=== PATIENT | male | born 1945 | race Caucasian/White ===

== ENCOUNTER 2017-11-22 16:39 | Emergency (ER) | payer OTHER ==
[2017-11-22 16:56] VITALS: BMI 26.5
[2017-11-22] MEDS ORDERED: NS 1000 ML 1,000 ML ONE ×3 (17:08→21:25)
[2017-11-22] MEDS ORDERED: ADENOCARD INJ 6 MG IVP ONE ×2 (17:08→17:15)
[2017-11-22 17:11] LABS: BASOPHILS % (AUTO) 0.3 % (0.2-1.0); EOSINOPHILS % (AUTO) 0.1 % (0.9-2.9); HEMATOCRIT 38.3 % (42.0-54.0); HEMOGLOBIN 13.2 g/dL (13.5-18.0); LYMPHOCYTES # (AUTO) 0.4 X10^3/uL (1.3-2.9); LYMPHOCYTES % (AUTO) 5.2 % (21.0-51.0); MEAN CORPUSCULAR HEMOGLOBIN 32.1 pg (27.0-34.0); MEAN CORPUSCULAR HGB CONC 34.6 g/dL (33.0-35.0); MEAN CORPUSCULAR VOLUME 92.9 fL (80.0-100.0); MEAN PLATELET VOLUME 7.3 fL (7.4-11.0); MONOCYTES # (AUTO) 0 x10^3/uL (0.3-0.8); MONOCYTES % (AUTO) 0.5 % (0.0-13.0); NEUTROPHILS # (AUTO) 7.3 x10^3/uL (2.2-4.8); NEUTROPHILS % (AUTO) 93.9 % (42.0-75.0); PLATELET COUNT 189 X10^3/uL (150.0-450.0); RED BLOOD COUNT 4.13 X10^6/uL (4.7-6.0); RED CELL DISTRIBUTION WIDTH 13.1 % (11.6-16.5); WHITE BLOOD COUNT 7.8 X10^3/uL (3.6-10.0)
[2017-11-22] MEDS ORDERED: CARDIZEM INJ 50 MG VIAL ONE (17:16)
[2017-11-22 17:17] LABS: PLATELET MORPHOLOGY COMMENT NORMAL (NORMAL)
[2017-11-22] MEDS ORDERED: CARDIZEM INJ 50 MG VIAL IVP ONE ×2 (17:22→17:43)
[2017-11-22 17:25] LABS: BAND NEUTROPHILS % 4 % (0-10)
[2017-11-22 17:26] LABS: LACTIC ACID 3.1 mmol/L (0.4-2.0)
[2017-11-22 17:31] LABS: ALANINE AMINOTRANSFERASE 42 Units/L (12-78); ALBUMIN 3.4 g/dL (3.4-5.0); ALKALINE PHOSPHATASE 92 Units/L (46-116); ASPARTATE AMINO TRANSFERASE 25 Units/L (15-37); BLOOD UREA NITROGEN 22 mg/dL (7-18); CALCIUM 8.7 mg/dL (8.5-10.1); CARBON DIOXIDE 27.8 mmol/L (21-32); CHLORIDE 97 mmol/L (98-107); CKMB % 1.5 % (<4); COR NA(FOR HYPERGLY) 135 mmol/L (136-145); CREATINE KINASE 130 Units/L (39-308); MAGNESIUM 1.4 mg/dL (1.7-2.9); SODIUM 134 mmol/L (136-145); TOTAL PROTEIN 7.4 g/dL (6.4-8.2); TROPONIN I < 0.02 ng/mL (0-1.5); eGFR BLACK RACES > 60 (>60); eGFR NON BLACK RACES 58 (>60)
[2017-11-22] MEDS ORDERED: LEVAQUIN PREMIX IV 750 MG 750 MG/150 ML BAG IV ONE ×2 (17:34→17:37)
[2017-11-22 18:05] LABS: BILIRUBIN,URINE NEGATIVE (NEGATIVE); BLOOD/HEMOGLOBIN,URINE 5+ (NEGATIVE); GLUCOSE, URINE NEGATIVE (NEGATIVE); KETONES,URINE NEGATIVE (NEGATIVE); LEUKOCYTE ESTERASE ,URINE 1+ (NEGATIVE); NITRITES,URINE NEGATIVE (NEGATIVE); PROTEIN,URINE 1+ (NEGATIVE); UROBILINOGEN,URINE NORMAL (NORMAL)
[2017-11-22 18:14] LABS: APPEARANCE,URINE SLIGHTLY HAZY (CLEAR); BACTERIA,URINE 1+ /HPF (NEGATIVE); COLOR,URINE DARK YELLOW (YELLOW); RBC,URINE 30-50 /HPF (NONE SEEN); SQUAMOUS EPITHELIAL CELL,UR NEGATIVE /HPF (NEGATIVE)
[2017-11-22 18:15] LABS: YEAST,URINE RARE /HPF (NEGATIVE)
--- NOTE | 2017-11-22 18:40 | DR.URIAD ---
HPI - Time Seen Time seen: 18:37 (seen on arrival to ER room) - PCP Primary Care Physician: IMMANUEL - Complaint Chief Complaint Doctors Comments: 1 day hx of symptoms, had prostate bx yesterday. 'Just got over the flu', per daughter. Feels cold with shaking chills, no measured fevers Chief Complaint:: SHAKES, COLD, CAN'T STAND UP. PT. STATES "I THINK I'VE GOT THE FLU." - Reviewed Nurses Notes Reviewed: Yes - Source History Provided: Patient - Mode of Arrival Mode of Arrival: Ambulatory - Timing Onset of Chief Complaint: 11/22/17 - Context History of Respiratory: Suspected Exposure to Flu PMH - PMH Past Medical History: Yes Past Medical History: Diabetes, Dyslipidemia, Hypertension, Hypothyroidism Past Surgical History: Yes Surgical History: Appendectomy Past Surgical History Comment: prostate bx yesterday - Family History History of Family Medical Conditions: No - Social History Does patient currently use any type of tobacco product: No Have you used tobacco products in the last 12 months: No Type of Tobacco Use: None Does any household member use tobacco: No Alcohol Use: None Do you use any recreational Drugs:: No Lives With: Alone Lives Where: Home - infectious screening In the last 2 months have you had wt loss of >10#?: NO Have you had fever, night sweats or hemotysis?: No Have you traveled outside the country in the last 6 months?: No Isolation: Standard ROS - Review of Systems Constitutional: Chills, Malaise, Fatigue Eyes: No Symptoms Reported ENTM: No Symptoms Reported Respiratoy: No Symptoms Reported Cardiovascular: No Symptoms Reported Gastrointestinal/Abdominal: No Symptoms Reported Genitourinary: Frequency Neurological: Weakness Musculoskeletal: No Symptoms Reported Integumentary: No Symptoms Reported Hematologic/Lymphatic: No Symptoms Reported Endocrine: No Symptoms Reported Psychiatric: No Symptoms Reported All Other Systems: Reviewed and Negative PE - Vital Signs Vitals: Temperature 99.4 F Pulse Rate [Apical] 127 Pulse Rate 148 Respiratory Rate 25 Blood Pressure [Right Arm] 92/50 Blood Pressure 133/80 O2 Sat by Pulse Oximetry 99 - General Limitations: No Limitations General Appearance: Alert, Other (ill appearing but NAD) - Head Head Exam: Normal Inspection, Atraumatic, Normocephalic - Eyes Eye exam: Normal Appearance - ENT ENT Exam: Normal Exam, Normal Oropharynx Throat Exam: Normal Inspection. negative: Tonsillar Erythema - Respiratory Respiratory Exam: Normal Lung Sounds Bilat. negative: Accessory Muscle Use, Respiratory Distress Respiratory Exam: Bilateral Clear to Auscultation - Cardiovascular Cardiovascular Exam: Tachycardia, Other (tachy in 140's on arrival) - Abdominal Exam Abdominal Exam: Normal Bowel Sounds, Soft, Tenderness. negative: Guarding, Rebound, Rigidity, Dimnished Bowel Sounds - Extremeties Extremities Exam: Normal Inspection, Full ROM - Neurologic Neurological Exam: Alert, Oriented X3 - Psychiatric Psychiatric Exam: Normal Affect, Normal Mood - Skin Skin Exam: Warm, Dry, Normal Color ROR - Labs Reviewed Laboratory Results Reviewed?: Yes (lactic 3.1) Result Diagrams: 11/22/17 16:57 11/22/17 16:57 Laboratory: WBC 7.8 X10^3/uL (3.6-10.0) 11/22/17 16:57 RBC 4.13 X10^6/uL (4.7-6.0) L 11/22/17 16:57 Hgb 13.2 g/dL (13.5-18.0) L 11/22/17 16:57 Hct 38.3 % (42.0-54.0) L 11/22/17 16:57 MCV 92.9 fL (80.0-100.0) 11/22/17 16:57 MCH 32.1 pg (27.0-34.0) 11/22/17 16:57 MCHC 34.6 g/dL (33.0-35.0) 11/22/17 16:57 RDW 13.1 % (11.6-16.5) 11/22/17 16:57 Plt Count 189 X10^3/uL (150.0-450.0) 11/22/17 16:57 Plt Count Comment Adequate (ADEQUATE) 11/22/17 16:57 MPV 7.3 fL (7.4-11.0) L 11/22/17 16:57 Neut % 93.9 % (42.0-75.0) H 11/22/17 16:57 Lymph % 5.2 % (21.0-51.0) L 11/22/17 16:57 [place] % 0.5 % (0.0-13.0) 11/22/17 16:57 Eos % 0.1 % (0.9-2.9) L 11/22/17 16:57 Baso % 0.3 % (0.2-1.0) 11/22/17 16:57 Neut # 7.3 x10^3/uL (2.2-4.8) H 11/22/17 16:57 Lymph # 0.4 X10^3/uL (1.3-2.9) L 11/22/17 16:57 [place] # 0 x10^3/uL (0.3-0.8) L 11/22/17 16:57 Eos # 0.0 x10^3/uL (0.0-0.2) 11/22/17 16:57 Baso # 0.0 X10^3/uL (0.0-0.1) 11/22/17 16:57 Absolute Nucleated RBC 0.0 /100WBC 11/22/17 16:57 Total Counted 100 11/22/17 16:57 Neutrophils % (Manual) 88 % (39-76) H 11/22/17 16:57 Band Neutrophils % 4 % (0-10) 11/22/17 16:57 Lymphocytes % (Manual) 6 % (13-43) L 11/22/17 16:57 Monocytes % (Manual) 2 % (4-9) L 11/22/17 16:57 Plt Morphology Comment Normal (NORMAL) 11/22/17 16:57 RBC Morphology Normal (NORMAL) 11/22/17 16:57 Sodium 134 mmol/L (136-145) L 11/22/17 16:57 Corrected Sodium 135 mmol/L (136-145) L 11/22/17 16:57 Potassium 4.0 mmol/L (3.5-5.1) 11/22/17 16:57 Chloride 97 mmol/L (98-107) L 11/22/17 16:57 Carbon Dioxide 27.8 mmol/L (21-32) 11/22/17 16:57 BUN 22 mg/dL (7-18) H 11/22/17 16:57 Creatinine 1.30 mg/dL (0.70-1.30) 11/22/17 16:57 Est GFR (MDRD) Af Amer > 60 (>60) 11/22/17 16:57 Est GFR (MDRD) Non-Af 58 (>60) L 11/22/17 16:57 Glucose 124 mg/dL (65-99) H 11/22/17 16:57 Lactic Acid 3.1 mmol/L (0.4-2.0) H 11/22/17 16:57 Calcium 8.7 mg/dL (8.5-10.1) 11/22/17 16:57 Corrected Calcium TNP 11/22/17 16:57 Magnesium 1.4 mg/dL (1.7-2.9) L 11/22/17 16:57 Total Bilirubin 1.10 mg/dL (0.2-1.0) H 11/22/17 16:57 AST 25 Units/L (15-37) 11/22/17 16:57 ALT 42 Units/L (12-78) 11/22/17 16:57 Alkaline Phosphatase 92 Units/L (46-116) 11/22/17 16:57 Creatine Kinase 130 Units/L (39-308) 11/22/17 16:57 CK-MB (CK-2) 2.0 ng/mL (0-4.0) 11/22/17 16:57 CK/CKMB % Calc 1.5 % (<4) 11/22/17 16:57 Troponin I < 0.02 ng/mL (0-1.5) 11/22/17 16:57 Total Protein 7.4 g/dL (6.4-8.2) 11/22/17 16:57 Albumin 3.4 g/dL (3.4-5.0) 11/22/17 16:57 Globulin 4.0 g/dL (2.5-4.5) 11/22/17 16:57 Albumin/Globulin Ratio 0.9 Ratio (1.1-2.1) L 11/22/17 16:57 Specimen Type Random urine 11/22/17 17:56 Urine Color Dark yellow (YELLOW) 11/22/17 17:56 Urine Appearance Slightly hazy (CLEAR) 11/22/17 17:56 Urine pH 5.0 (5.0 - 8.0) 11/22/17 17:56 Ur Specific [place] 1.010 (1.000-1.030) 11/22/17 17:56 Urine Protein 1+ (NEGATIVE) 11/22/17 17:56 Urine Glucose (UA) Negative (NEGATIVE) 11/22/17 17:56 Urine Ketones Negative (NEGATIVE) 11/22/17 17:56 Urine Occult Blood 5+ (NEGATIVE) 11/22/17 17:56 Urine Nitrite Negative (NEGATIVE) 11/22/17 17:56 Urine Bilirubin Negative (NEGATIVE) 11/22/17 17:56 Urine Urobilinogen Normal (NORMAL) 11/22/17 17:56 Ur Leukocyte Esterase 1+ (NEGATIVE) 11/22/17 17:56 Urine RBC 30-50 /HPF (NONE SEEN) 11/22/17 17:56 Urine WBC 10-15 /HPF (NONE SEEN) 11/22/17 17:56 Ur Squamous Epith Cells Negative /HPF (NEGATIVE) 11/22/17 17:56 Urine Bacteria 1+ /HPF (NEGATIVE) 11/22/17 17:56 Urine Yeast Rare /HPF (NEGATIVE) 11/22/17 17:56 Ur Culture Indicated? No/not indicated 11/22/17 17:56 Influenza Type A (PCR) Negative (NEGATIVE) 11/22/17 16:52 Influenza Type B (PCR) Negative (NEGATIVE) 11/22/17 16:52 - XRAY XRAY Interpreted by: Radiologist XRAY Findings: CT shows inflamm changes w/ surr fat stranding, no free air - Diagnosis Discharge Problem: Sepsis - Discharge Plan Disposition: XFER [facility] HOSP Condition: Stable - Follow ups/Referrals Follow ups/Referrals: NFD,None [Primary Care Provider] - 3 days - Instructions Additional Notes - Additional Notes Additional Notes: Pt given adenosine x 2 as initial rhythm showed SVT, this had little effect on rate. Cardizem IV bolus x 2 given which slowed rate to 120s- 130s but also dropped BP to 80's/50's. Fluid boluses guiven per sepsis protocol. Pt tolerated this well, remained alert and conversant throughout ER stay. Dr nielsen requests pt be transferred. I spoke with Dr Pimentel at approx 945p, who performed bx yesterday, he agrees that pt probably septic from bx procedure. Dr Pimentel suggests adding Zosyn and vanc while pt still here in ER. Suggests I call hospitalist at [facility] for admission there. I spoke with Ramon Martino, and reviewed workup and results, and concern for sepsis from procedure yesterday. He accepts pt in transfer to ER there for further tx.
--- NOTE | 2017-11-22 19:44 | CT ---
HISTORY: Abdominal pain status post prostate biopsy Study: CT abdomen and pelvis with contrast Comparison: None Technique: Multiple axial images of the abdomen and pelvis were obtained with IV contrast. Oral contrast is not administered. Dose reduction techniques including Automated Exposure Control (AEC) and adjustment of mA and kV were utilized. Findings: The visualized portions of the lung bases are clear. The liver, spleen, pancreas, kidneys, and adren al glands are unremarkable. The gallbladder is normal. No free intraperitoneal air. There is extensive colonic diverticulosis throughout the colon. The appe ndix is removed. No free fluid is identified. There is rectal bowel wall edema with surrounding perir ectal stranding at the level of the prostate gland. The prostate gland appears diffusely edematous an d heterogeneous. The findings could be related to recent prostate biopsy. No evidence of significant bowel perforation. There is a small bowel containing umbilical hernia. The soft tissues and osseous structures are unremarkable. The vascular structures are within normal l imits for age. No pathologically enlarged lymph nodes are identified. The urinary bladder wall appear s thickened. IMPRESSION: 1. Inflammatory changes and bowel wall edema of the rectum with surrounding fat stranding; these bertrand ges could be related to recent prostate biopsy, correlate clinically. The prostate also appears edema tous and heterogeneous. There is urinary bladder wall thickening also noted which could be on the bas is of some degree of bladder outlet obstruction but correlation with urinalysis may be beneficial. Reported By:
[2017-11-22] MEDS ORDERED: ZOSYN VIAL 3.375 GM 3.375 GM in NS 100 ML IV + SPIKE MINIBAG* 100 ML IV ONE (21:51)
[2017-11-22] MEDS ORDERED: VANCOMYCIN HCL 1 GM VIAL 1 GM in D5W 250 ML IV 250 ML IV ONE (21:52)
[2017-11-22 22:19] VITALS: BP 92/50
[2017-11-22] MEDS ORDERED: VANCOMYCIN 1 GM PREMIX (ADDVANTAGE) 250 ML IV ONE (22:20)
== END 2017-11-22 22:35 | disposition short-term general hospital (02) ==
LOC: ER 16:46
DX: A41.9 Sepsis, unspecified organism (principal); R94.31 Abnormal electrocardiogram [ECG] [EKG]; B96.81 Helicobacter pylori [H. pylori] as the cause of diseases classified elsewhere
CPT/HCPCS: 36415; 74177; 80053; 81001; 82550; 82553; 83605; 83735; 84484; 85025; 87040; 87077; 87186; 87502; 93005; 93010; 93041; 96365; 96367; 96374; 96375; 99282; 99285; A4222; J1956; J3370; J3490